=== PATIENT | female | born 1950 | race Caucasian/White ===

== ENCOUNTER 2021-03-12 06:38 | Inpatient (IN) ==
[2021-03-12] MEDS ORDERED: ALBUTEROL 2.5 MG/3 ML NEB RESP TX STA (07:06)
[2021-03-12] MEDS ORDERED: ONDANSETRON 4 MG/2 ML VIAL IV STA (07:07)
[2021-03-12 07:54] LABS: Basophils # 0.1 10*3/uL (0.0-0.2); Basophils % 0.6 % (0.0-0.8); Eosinophils # 0.2 10*3/uL (0.0-0.87); Eosinophils % 2.1 % (0.00-10.9); Hematocrit 24.8 VOL% (35.7-47.0); Hemoglobin 7.7 GM/DL (12.0-16.0); Immature Granulocytes % 0.4 %; Immature Granulocytes Absolute 0.03 #; Lymphocytes # 2.5 10*3/uL (1.4-4.0); Lymphocytes % 32.4 % (21.3-54.2); Mean Corpuscular Volume 71.9 FL (87-102); Mean Platelet Volume 8.8 FL (9.6-12.0); Monocytes % 14.9 % (1.7-12.7); Neutrophils % 49.6 % (38.7-73.9); Platelet Count 300 T/CUMM (130-400); Red Blood Count 3.45 MC/CUMM (3.8-5.5); Red Cell Distribution Width 17.4 % (9.3-17.3); White Blood Count 7.8 T/CUMM (4-12)
[2021-03-12 08:06] LABS: PT Patient Result 11.5 SECS (10.5-12.0); Partial Thromboplastin Time 25.9 SECS (23.9-33.8)
[2021-03-12] MEDS ORDERED: fentaNYL 100 MCG/2 ML VIAL IV STA ×2 (08:10→09:41)
[2021-03-12 08:14] LABS: Atypical Lymphocytes Few; Band Neutrophils 1 % (0-10); Eosinophils 2 % (0-10); Hypochromasia 2+; Lymphocytes 33 % (20-55); Microcytosis 1+; Ovalocytes Slight; Segmented Neutrophils 52 % (50-85); Target Cells Slight; Total Cells Counted 100
[2021-03-12 08:15] LABS: Platelet Estimate Normal
[2021-03-12 08:17] LABS: Albumin 3.7 G/DL (3.4-5.0); Bilirubin,Total 0.5 MG/DL (0.20-1.00); Calcium 8.1 MG/DL (8.5-10.1); Osmolality,Calculated 232.5 MOS/KG (273-304); Potassium 3.5 MMOL/L (3.5-5.1); Total Protein 7.3 G/DL (6.4-8.2)
[2021-03-12 10:01] LABS: % Iron Saturation 4.4 % (18-50); Ferritin 12.3 ng/ml (8-252)
[2021-03-12] MEDS ORDERED: PROMETHAZINE 25 MG TABLET PO PRN (10:55)
[2021-03-12] MEDS ORDERED: guaiFENesin/DM ER 600-30 MG TABLET PO PRN (10:55)
[2021-03-12] MEDS ORDERED: NICOTINE 21 MG/24 HR PATCH TRANSDERM PRN (10:55)
[2021-03-12] MEDS ORDERED: DOCUSATE SODIUM 100 MG CAPSULE PO PRN (10:55)
[2021-03-12] MEDS ORDERED: GLUCAGON 1 MG VIAL IM PRN (10:55)
[2021-03-12] MEDS ORDERED: DEXTROSE 50% 25 GM/50 ML VIAL IV PRN (10:55)
[2021-03-12] MEDS ORDERED: ONDANSETRON 4 MG/2 ML VIAL IV PRN (10:55)
[2021-03-12] MEDS ORDERED: MORPHINE 2 MG/1 ML SYRINGE IV PRN (10:55)
[2021-03-12] MEDS ORDERED: ALUMINUM/MAGNES/SIMETH MAX STR 30 ML UDCUP PO PRN (10:55)
[2021-03-12] MEDS ORDERED: ALBUTEROL/IPRATROPIUM 3 ML NEB RESP TX PRN (11:30)
[2021-03-12 11:41] LABS: Folate 14.25 NG/ML (5.38-24.0)
[2021-03-12] MEDS ORDERED: SODIUM CHLORIDE 0.9% 1,000 ML IV PRN (12:59)
[2021-03-12] MEDS: ALBUTEROL/IPRATROPIUM 3 ML NEB RESP TX SCH ×2 (13:24→20:00)
[2021-03-12] MEDS ORDERED: NITROGLYCERIN SL 0.4 MG TABLET SL PRN (13:25)
[2021-03-12] MEDS: cefTRIAXone 1,000 MG in SODIUM CHLORIDE 0.9% 100 ML IV SCH (14:10)
[2021-03-12] MEDS: AZITHROMYCIN 250 MG TABLET PO SCH (14:11)
[2021-03-12] MEDS: methylPREDNISolone SOD SUC 40 MG/1 ML VIAL IV SCH (14:11)
[2021-03-12 16:25] LABS: Bacteria,Urine Occasional /HPF (Few); Bilirubin,Urine Negative (Negative); Blood, Urine Negative (Negative); Glucose,Urine (UA) Negative (Negative); Ketones,Urine Negative (Negative); Mucus,Urine Occasional /LPF (Occasional); Nitrite,Urine Negative (Negative); Protein,Urine Negative; RBC,Urine 2 /HPF (0-4); Squamous Epithelial Cell,Urine Occasional /HPF (0-10); Urine Appearance CLEAR (Clear); Urine Color Colorless (Yellow); Urine Specific Gravity 1.002 (1.001-1.035); Urine Urobilinogen < 2.0 EU/DL (0.2-1.0)
[2021-03-13] MEDS: ALBUTEROL/IPRATROPIUM 3 ML NEB RESP TX SCH ×4 (00:54→18:24)
[2021-03-13] MEDS: methylPREDNISolone SOD SUC 40 MG/1 ML VIAL IV SCH ×2 (01:46→16:25)
[2021-03-13 04:06] LABS: Basophils % 0.2 % (0.0-0.8); Hematocrit 30.8 VOL% (35.7-47.0); Immature Granulocytes % 0.9 %; Immature Granulocytes Absolute 0.05 #; Lymphocytes # 0.8 10*3/uL (1.4-4.0); Lymphocytes % 14.6 % (21.3-54.2); Mean Corpuscular HGB Conc 31.8 GM/DL (32-36); Mean Corpuscular Volume 77.6 FL (87-102); Mean Platelet Volume 9.2 FL (9.6-12.0); Monocytes % 6.9 % (1.7-12.7); Neutrophils % 77.4 % (38.7-73.9); Platelet Count 283 T/CUMM (130-400); Red Blood Count 3.97 MC/CUMM (3.8-5.5); Red Cell Distribution Width 19.6 % (9.3-17.3); White Blood Count 5.6 T/CUMM (4-12)
[2021-03-13 04:14] LABS: Hemoglobin 9.8 GM/DL (12.0-16.0)
[2021-03-13 04:39] LABS: Risk Ratio 1.88; VLDL Cholesterol 11.2 MG/DL
[2021-03-13 04:55] LABS: Calcium 8.6 MG/DL (8.5-10.1); Osmolality,Calculated 249.6 MOS/KG (273-304); Potassium 4.2 MMOL/L (3.5-5.1); Thyroid Stimulating Hormone 1.21 uIU/ml (0.358-3.74)
[2021-03-13] MEDS: FUROSEMIDE 40 MG TABLET PO SCH (08:42)
[2021-03-13] MEDS: AZITHROMYCIN 250 MG TABLET PO SCH (08:42)
[2021-03-13] MEDS: amLODIPine 2.5 MG TABLET PO SCH (08:42)
[2021-03-13] MEDS: ATORVASTATIN 40 MG TABLET PO SCH (08:42)
[2021-03-13] MEDS: carvediloL 25 MG TABLET PO SCH (08:42)
[2021-03-13 12:10] LABS: Osmolality, Serum 241 mOsm/kg (275 - 295)
[2021-03-13 12:29] LABS: Osmolality, Urine 85 mOsm/kg (150 - 1150)
[2021-03-13] MEDS: ASPIRIN EC 81 MG TABLET PO SCH (16:22)
[2021-03-13] MEDS: cefTRIAXone 1,000 MG in SODIUM CHLORIDE 0.9% 100 ML IV SCH (16:24)
[2021-03-14] MEDS: ALBUTEROL/IPRATROPIUM 3 ML NEB RESP TX SCH ×4 (01:00→19:44)
[2021-03-14 08:06] LABS: Hematocrit 29.5 VOL% (35.7-47.0); Hemoglobin 9.4 GM/DL (12.0-16.0); Immature Granulocytes % 0.5 %; Immature Granulocytes Absolute 0.05 #; Lymphocytes # 1.7 10*3/uL (1.4-4.0); Mean Corpuscular HGB Conc 31.9 GM/DL (32-36); Mean Corpuscular Volume 77.4 FL (87-102); Neutrophils % 68.5 % (38.7-73.9); Platelet Count 299 T/CUMM (130-400); Red Blood Count 3.81 MC/CUMM (3.8-5.5); Red Cell Distribution Width 19.2 % (9.3-17.3); White Blood Count 9.7 T/CUMM (4-12)
[2021-03-14 08:20] LABS: Osmolality,Calculated 255.6 MOS/KG (273-304); Potassium 4.1 MMOL/L (3.5-5.1)
[2021-03-14] MEDS: AZITHROMYCIN 250 MG TABLET PO SCH (08:54)
[2021-03-14] MEDS: amLODIPine 2.5 MG TABLET PO SCH (08:54)
[2021-03-14] MEDS: ASPIRIN EC 81 MG TABLET PO SCH (08:54)
[2021-03-14] MEDS: ATORVASTATIN 40 MG TABLET PO SCH (08:55)
[2021-03-14] MEDS: FUROSEMIDE 40 MG TABLET PO SCH (08:55)
[2021-03-14] MEDS: carvediloL 25 MG TABLET PO SCH (08:56)
[2021-03-14] MEDS: cefTRIAXone 1,000 MG in SODIUM CHLORIDE 0.9% 100 ML IV SCH (15:39)
[2021-03-15 06:31] LABS: Basophils % 0.3 % (0.0-0.8); Eosinophils # 0.1 10*3/uL (0.0-0.87); Eosinophils % 0.6 % (0.00-10.9); Hematocrit 29.2 VOL% (35.7-47.0); Hemoglobin 9.5 GM/DL (12.0-16.0); Immature Granulocytes % 0.4 %; Immature Granulocytes Absolute 0.05 #; Lymphocytes % 26.7 % (21.3-54.2); Mean Corpuscular HGB Conc 32.5 GM/DL (32-36); Mean Corpuscular Volume 77.9 FL (87-102); Monocytes % 15.1 % (1.7-12.7); Neutrophils % 56.9 % (38.7-73.9); Platelet Count 281 T/CUMM (130-400); Red Blood Count 3.75 MC/CUMM (3.8-5.5); Red Cell Distribution Width 19.8 % (9.3-17.3); White Blood Count 11.3 T/CUMM (4-12)
[2021-03-15 06:49] LABS: Calcium 8.6 MG/DL (8.5-10.1); Osmolality,Calculated 258.1 MOS/KG (273-304)
[2021-03-15] MEDS: ALBUTEROL/IPRATROPIUM 3 ML NEB RESP TX SCH (07:25)
[2021-03-15] MEDS: ASPIRIN EC 81 MG TABLET PO SCH (08:35)
[2021-03-15] MEDS: ATORVASTATIN 40 MG TABLET PO SCH (08:36)
[2021-03-15] MEDS: AZITHROMYCIN 250 MG TABLET PO SCH (08:36)
[2021-03-15] MEDS: FUROSEMIDE 40 MG TABLET PO SCH (08:36)
[2021-03-15] MEDS: carvediloL 25 MG TABLET PO SCH (08:36)
[2021-03-15] MEDS: amLODIPine 2.5 MG TABLET PO SCH (08:36)
[2021-03-15] MEDS ORDERED: MAGNESIUM SULF RIDER 2 GM/50 ML PREMIX IV ONE (10:39)
[2021-03-15] MEDS ORDERED: FERROUS SULFATE 325 MG TABLET PO SCH (11:00)
[2021-03-15 11:39] VITALS: BP 106/53
== END 2021-03-15 10:09 | disposition home or self-care (01) | DRG 641 ==
LOC: EDBD → EDUNIT# → N.ED 06:38 → N.EDINP 10:54 → SUATTDRO 10:54 → N.4E 11:49
PROVIDERS: ADMIT Internal Medicine; ATTEND Internal Medicine

== ENCOUNTER 2021-05-21 10:12 | Inpatient (IN) ==
[2021-05-21] MEDS ORDERED: FUROSEMIDE 100 MG/10 ML VIAL IV STA (10:47)
[2021-05-21] MEDS ORDERED: ALBUTEROL/IPRATROPIUM 3 ML NEB RESP TX STA (10:47)
[2021-05-21 11:13] LABS: Basophils % 0.4 % (0.0-0.8); Eosinophils # 0.3 10*3/uL (0.0-0.87); Hematocrit 24.6 VOL% (35.7-47.0); Hemoglobin 7.8 GM/DL (12.0-16.0); Immature Granulocytes % 0.6 %; Immature Granulocytes Absolute 0.05 #; Lymphocytes # 1.7 10*3/uL (1.4-4.0); Lymphocytes % 20.4 % (21.3-54.2); Mean Corpuscular HGB Conc 31.7 GM/DL (32-36); Mean Corpuscular Volume 72.1 FL (87-102); Monocytes % 12.8 % (1.7-12.7); Neutrophils % 61.8 % (38.7-73.9); Platelet Count 328 T/CUMM (130-400); Red Blood Count 3.41 MC/CUMM (3.8-5.5); Red Cell Distribution Width 18.5 % (9.3-17.3); White Blood Count 8.2 T/CUMM (4-12)
[2021-05-21 11:45] LABS: Albumin 3.7 G/DL (3.4-5.0); Bilirubin,Total 0.6 MG/DL (0.20-1.00); Calcium 8.3 MG/DL (8.5-10.1); Osmolality,Calculated 237.3 MOS/KG (273-304); Potassium 3.8 MMOL/L (3.5-5.1); Total Protein 7.2 G/DL (6.4-8.2)
[2021-05-21 11:54] LABS: Urine Appearance Clear (Clear); Urine Color TELLOW (Yellow)
[2021-05-21 11:55] LABS: Bilirubin,Urine Negative (Negative); Blood, Urine Negative (Negative); Glucose,Urine (UA) Negative (Negative); Ketones,Urine 1+ mg/dL (Negative); Nitrite,Urine Negative (Negative); Protein,Urine Negative; Urine Specific Gravity 1.005 (1.001-1.035)
[2021-05-21 11:56] LABS: RBC,Urine 1 /HPF (0-4); Squamous Epithelial Cell,Urine 5 /HPF (0-10)
[2021-05-21 12:07] LABS: Eosinophils 2 % (0-10); Hypochromasia 2+; Lymphocytes 22 % (20-55); Ovalocytes Few; Segmented Neutrophils 71 % (50-85); Total Cells Counted 100
[2021-05-21 12:08] LABS: Anisocytosis 1+; Platelet Estimate Normal; Polychromasia Few; Target Cells 1+
[2021-05-21 12:09] LABS: Spherocytes Slight
[2021-05-21] MEDS ORDERED: MORPHINE 2 MG/1 ML SYRINGE IV STA (12:58)
[2021-05-21] MEDS ORDERED: ONDANSETRON 4 MG/2 ML VIAL IV STA (12:58)
[2021-05-21] MEDS ORDERED: MORPHINE 2 MG/1 ML SYRINGE ONE (13:01)
[2021-05-21] MEDS ORDERED: BISACODYL 5 MG TABLET PO PRN (14:04)
[2021-05-21] MEDS ORDERED: DEXTROSE 50% 25 GM/50 ML VIAL IV PRN ×2 (14:04→14:22)
[2021-05-21] MEDS ORDERED: guaiFENesin/DM ER 600-30 MG TABLET PO PRN (14:04)
[2021-05-21] MEDS ORDERED: GLUCAGON 1 MG VIAL IM PRN (14:04)
[2021-05-21] MEDS ORDERED: ACETAMINOPHEN 325 MG TABLET PO PRN (14:04)
[2021-05-21] MEDS ORDERED: ONDANSETRON 4 MG/2 ML VIAL IV PRN (14:04)
[2021-05-21] MEDS ORDERED: NITROGLYCERIN SL 0.4 MG TABLET SL PRN (14:26)
[2021-05-21] MEDS ORDERED: chlordiazePOXIDE 25 MG CAPSULE PO PRN (15:02)
[2021-05-21] MEDS: MULTIVITAMIN (BEROCCA) TABLET PO SCH (16:00)
[2021-05-21] MEDS: THIAMINE 100 MG TABLET PO SCH (16:15)
[2021-05-21] MEDS: cefTRIAXone 1,000 MG in SODIUM CHLORIDE 0.9% 100 ML IV SCH (16:24)
[2021-05-21] MEDS: FUROSEMIDE 40 MG/4 ML VIAL IV SCH (17:08)
[2021-05-21] MEDS: INSULIN LISPRO 100 UNIT/ML SUBCUT SCH ×2 (17:14→20:56)
[2021-05-21] MEDS: CLINDAMYCIN INJ 600 MG/50 ML PREMIX IV SCH ×2 (17:15→21:41)
[2021-05-21] MEDS: ALBUTEROL/IPRATROPIUM 3 ML NEB RESP TX SCH (19:45)
[2021-05-21 20:02] LABS: Calcium 8.2 MG/DL (8.5-10.1); Osmolality,Calculated 245.6 MOS/KG (273-304); Potassium 3.5 MMOL/L (3.5-5.1)
[2021-05-21] MEDS: FOLIC ACID 1 MG TABLET PO SCH ×2 (20:55→21:12)
[2021-05-21] MEDS: GABAPENTIN 100 MG CAPSULE PO SCH (21:40)
[2021-05-21 23:53] LABS: Calcium 7.9 MG/DL (8.5-10.1); Osmolality,Calculated 243.8 MOS/KG (273-304); Potassium 3.2 MMOL/L (3.5-5.1)
[2021-05-22] MEDS: ALBUTEROL/IPRATROPIUM 3 ML NEB RESP TX SCH ×4 (00:01→19:17)
[2021-05-22 02:31] LABS: Basophils % 0.4 % (0.0-0.8); Eosinophils # 0.5 10*3/uL (0.0-0.87); Hemoglobin 6.8 GM/DL (12.0-16.0); Immature Granulocytes % 0.4 %; Immature Granulocytes Absolute 0.03 #; Lymphocytes # 1.9 10*3/uL (1.4-4.0); Mean Corpuscular HGB Conc 30.9 GM/DL (32-36); Mean Corpuscular Volume 72.6 FL (87-102); Mean Platelet Volume 9.1 FL (9.6-12.0); Monocytes % 18.6 % (1.7-12.7); Neutrophils % 49.6 % (38.7-73.9); Platelet Count 272 T/CUMM (130-400); Red Blood Count 3.03 MC/CUMM (3.8-5.5); Red Cell Distribution Width 18.5 % (9.3-17.3); White Blood Count 7.7 T/CUMM (4-12)
[2021-05-22 02:34] LABS: Calcium 8.1 MG/DL (8.5-10.1); Osmolality,Calculated 243.8 MOS/KG (273-304); Potassium 3.3 MMOL/L (3.5-5.1)
[2021-05-22 02:37] LABS: Alanine Aminotransferase < 6 U/L (13-56); Albumin 3.3 G/DL (3.4-5.0); Alkaline Phosphatase 50 U/L (45-117); Aspartate Amino Transferase 17 U/L (0-37); Bilirubin,Total < 0.39 MG/DL (0.20-1.00); Blood Urea Nitrogen 9 MG/DL (7-18); Calcium 8.1 MG/DL (8.5-10.1); Carbon Dioxide 29 MMOL/L (21-32); Estimated Glom Filtration Rate 85 ML/MIN; Glucose 62 MG/DL (74-106); Osmolality,Calculated 243.8 MOS/KG (273-304); Potassium 3.3 MMOL/L (3.5-5.1); Sodium 123 MMOL/L (136-145); Total Protein 6.6 G/DL (6.4-8.2)
[2021-05-22 02:39] LABS: % Iron Saturation 2.6 % (18-50); Ferritin 11.6 ng/mL (8-252)
[2021-05-22] MEDS ORDERED: SODIUM CHLORIDE 0.9% 1,000 ML IV PRN (02:45)
[2021-05-22 03:03] LABS: Eosinophils 4 % (0-10); Lymphocytes 21 % (20-55); Platelet Estimate Normal; Segmented Neutrophils 59 % (50-85); Total Cells Counted 100
[2021-05-22 03:04] LABS: Hypochromasia 1+; Microcytosis 1+
[2021-05-22] MEDS: CLINDAMYCIN INJ 600 MG/50 ML PREMIX IV SCH ×3 (05:30→23:29)
[2021-05-22] MEDS: FUROSEMIDE 40 MG/4 ML VIAL IV SCH ×2 (07:01→17:34)
[2021-05-22] MEDS ORDERED: OLMESARTAN 20 MG TABLET PO SCH (09:00)
[2021-05-22] MEDS ORDERED: amLODIPine 2.5 MG TABLET PO SCH (09:00)
[2021-05-22] MEDS ORDERED: PRASUGREL 10 MG TABLET PO SCH (09:00)
[2021-05-22] MEDS ORDERED: carvediloL 25 MG TABLET PO SCH (09:00)
[2021-05-22] MEDS ORDERED: ENOXAPARIN 40 MG/0.4 ML SYRINGE SUBCUT SCH (09:00)
[2021-05-22 09:20] LABS: Calcium 8.1 MG/DL (8.5-10.1); Osmolality,Calculated 243.9 MOS/KG (273-304); Potassium 3.5 MMOL/L (3.5-5.1)
[2021-05-22] MEDS: INSULIN LISPRO 100 UNIT/ML SUBCUT SCH ×4 (09:34→21:01)
[2021-05-22] MEDS: MULTIVITAMIN (BEROCCA) TABLET PO SCH (09:35)
[2021-05-22] MEDS: ATORVASTATIN 40 MG TABLET PO SCH (09:35)
[2021-05-22] MEDS: GABAPENTIN 100 MG CAPSULE PO SCH ×2 (09:35→21:00)
[2021-05-22] MEDS: THIAMINE 100 MG TABLET PO SCH (09:36)
[2021-05-22 14:53] LABS: Osmolality,Calculated 244.9 MOS/KG (273-304); Potassium 3.6 MMOL/L (3.5-5.1)
[2021-05-22 16:09] LABS: Hematocrit 27.1 VOL% (35.7-47.0); Hemoglobin 8.4 GM/DL (12.0-16.0)
[2021-05-22] MEDS: cefTRIAXone 1,000 MG in SODIUM CHLORIDE 0.9% 100 ML IV SCH (16:41)
[2021-05-22] MEDS: FOLIC ACID 1 MG TABLET PO SCH (21:00)
[2021-05-23] MEDS: ALBUTEROL/IPRATROPIUM 3 ML NEB RESP TX SCH ×4 (01:20→19:05)
[2021-05-23 05:19] LABS: Basophils # 0.1 10*3/uL (0.0-0.2); Basophils % 0.6 % (0.0-0.8); Eosinophils # 0.2 10*3/uL (0.0-0.87); Eosinophils % 1.9 % (0.00-10.9); Hematocrit 24.6 VOL% (35.7-47.0); Hemoglobin 7.7 GM/DL (12.0-16.0); Immature Granulocytes % 0.4 %; Immature Granulocytes Absolute 0.05 #; Lymphocytes # 1.6 10*3/uL (1.4-4.0); Lymphocytes % 14.3 % (21.3-54.2); Mean Corpuscular HGB Conc 31.3 GM/DL (32-36); Mean Corpuscular Volume 75.7 FL (87-102); Mean Platelet Volume 9.2 FL (9.6-12.0); Monocytes % 19.4 % (1.7-12.7); Neutrophils % 63.4 % (38.7-73.9); Platelet Count 256 T/CUMM (130-400); Red Blood Count 3.25 MC/CUMM (3.8-5.5); Red Cell Distribution Width 19.2 % (9.3-17.3); White Blood Count 11.3 T/CUMM (4-12)
[2021-05-23 05:34] LABS: Osmolality,Calculated 251.8 MOS/KG (273-304); Potassium 4.1 MMOL/L (3.5-5.1)
[2021-05-23 05:49] LABS: Band Neutrophils 2 % (0-10); Eosinophils 2 % (0-10); Hypochromasia 2+; Lymphocytes 13 % (20-55); Microcytosis 2+; Myelocytes 1 %; Segmented Neutrophils 69 % (50-85); Total Cells Counted 100
[2021-05-23 05:50] LABS: Elliptocytes Few; Platelet Estimate Normal
[2021-05-23] MEDS: CLINDAMYCIN INJ 600 MG/50 ML PREMIX IV SCH ×2 (06:06→18:52)
[2021-05-23] MEDS ORDERED: SODIUM CHLORIDE 0.9% 1,000 ML IV PRN ×2 (07:38→10:47)
[2021-05-23] MEDS ORDERED: FUROSEMIDE 20 MG/2 ML VIAL IV SCH (08:00)
[2021-05-23] MEDS: INSULIN LISPRO 100 UNIT/ML SUBCUT SCH ×4 (09:39→20:03)
[2021-05-23] MEDS: GABAPENTIN 100 MG CAPSULE PO SCH ×2 (09:42→20:18)
[2021-05-23] MEDS: THIAMINE 100 MG TABLET PO SCH (09:42)
[2021-05-23] MEDS: ATORVASTATIN 40 MG TABLET PO SCH (09:42)
[2021-05-23] MEDS: MULTIVITAMIN (BEROCCA) TABLET PO SCH (09:42)
[2021-05-23] MEDS: FERROUS SULFATE 325 MG TABLET PO SCH ×3 (09:47→20:18)
[2021-05-23] MEDS ORDERED: SODIUM CHLORIDE 0.9% 250 ML IV ONE (10:02)
[2021-05-23] MEDS: SODIUM CHLORIDE 0.9% 1,000 ML IV SCH ×2 (17:28→21:00)
[2021-05-23] MEDS: cefTRIAXone 1,000 MG in SODIUM CHLORIDE 0.9% 100 ML IV SCH (17:31)
[2021-05-23] MEDS: FOLIC ACID 1 MG TABLET PO SCH (20:18)
[2021-05-23 20:34] LABS: Osmolality, Urine 374 mOsm/kg (150 - 1150)
[2021-05-23 22:31] LABS: Osmolality, Serum 214 mOsm/kg (275 - 295)
[2021-05-24] MEDS: ALBUTEROL/IPRATROPIUM 3 ML NEB RESP TX SCH ×4 (00:29→20:55)
[2021-05-24] MEDS: CLINDAMYCIN INJ 600 MG/50 ML PREMIX IV SCH ×3 (02:41→18:11)
[2021-05-24 05:31] LABS: Basophils # 0.1 10*3/uL (0.0-0.2); Basophils % 0.8 % (0.0-0.8); Eosinophils # 0.3 10*3/uL (0.0-0.87); Eosinophils % 3.5 % (0.00-10.9); Hematocrit 28.3 VOL% (35.7-47.0); Hemoglobin 8.7 GM/DL (12.0-16.0); Immature Granulocytes % 0.4 %; Immature Granulocytes Absolute 0.04 #; Lymphocytes # 2.1 10*3/uL (1.4-4.0); Lymphocytes % 22.1 % (21.3-54.2); Mean Corpuscular HGB Conc 30.7 GM/DL (32-36); Mean Corpuscular Volume 78.6 FL (87-102); Mean Platelet Volume 9.1 FL (9.6-12.0); Monocytes % 20.5 % (1.7-12.7); Neutrophils % 52.7 % (38.7-73.9); Platelet Count 247 T/CUMM (130-400); Red Cell Distribution Width 19.6 % (9.3-17.3); White Blood Count 9.6 T/CUMM (4-12)
[2021-05-24 05:58] LABS: Calcium 7.9 MG/DL (8.5-10.1); Osmolality,Calculated 254.5 MOS/KG (273-304); Potassium 4.5 MMOL/L (3.5-5.1)
[2021-05-24] MEDS: SODIUM CHLORIDE 0.9% 1,000 ML IV SCH ×3 (06:26→19:29)
[2021-05-24 06:34] LABS: Anisocytosis 1+; Band Neutrophils 1 % (0-10); Eosinophils 1 % (0-10); Hypochromasia 1+; Lymphocytes 26 % (20-55); Platelet Estimate Normal; Segmented Neutrophils 53 % (50-85); Target Cells Few; Total Cells Counted 100
[2021-05-24 06:35] LABS: Burr Cells Few; Macrocytosis 1+
[2021-05-24] MEDS: INSULIN LISPRO 100 UNIT/ML SUBCUT SCH ×4 (08:25→20:44)
[2021-05-24] MEDS: MULTIVITAMIN (BEROCCA) TABLET PO SCH (09:21)
[2021-05-24] MEDS: ATORVASTATIN 40 MG TABLET PO SCH (09:22)
[2021-05-24] MEDS: GABAPENTIN 100 MG CAPSULE PO SCH ×2 (09:22→20:45)
[2021-05-24] MEDS: FERROUS SULFATE 325 MG TABLET PO SCH ×3 (09:22→20:45)
[2021-05-24] MEDS: THIAMINE 100 MG TABLET PO SCH (09:22)
[2021-05-24] MEDS: cefTRIAXone 1,000 MG in SODIUM CHLORIDE 0.9% 100 ML IV SCH (17:19)
[2021-05-24] MEDS: FOLIC ACID 1 MG TABLET PO SCH (20:45)
[2021-05-25] MEDS: ALBUTEROL/IPRATROPIUM 3 ML NEB RESP TX SCH ×4 (01:10→20:06)
[2021-05-25] MEDS: CLINDAMYCIN INJ 600 MG/50 ML PREMIX IV SCH ×3 (02:55→17:45)
[2021-05-25] MEDS: SODIUM CHLORIDE 0.9% 1,000 ML IV SCH ×3 (03:43→18:49)
[2021-05-25 06:03] LABS: Basophils # 0.1 10*3/uL (0.0-0.2); Basophils % 1.4 % (0.0-0.8); Eosinophils # 0.4 10*3/uL (0.0-0.87); Eosinophils % 4.4 % (0.00-10.9); Hematocrit 27.4 VOL% (35.7-47.0); Hemoglobin 8.6 GM/DL (12.0-16.0); Immature Granulocytes % 0.5 %; Immature Granulocytes Absolute 0.04 #; Lymphocytes # 1.8 10*3/uL (1.4-4.0); Lymphocytes % 20.8 % (21.3-54.2); Mean Corpuscular HGB Conc 31.4 GM/DL (32-36); Mean Platelet Volume 9.6 FL (9.6-12.0); Monocytes % 20.1 % (1.7-12.7); Neutrophils % 52.8 % (38.7-73.9); Platelet Count 259 T/CUMM (130-400); Red Blood Count 3.47 MC/CUMM (3.8-5.5); Red Cell Distribution Width 19.9 % (9.3-17.3); White Blood Count 8.9 T/CUMM (4-12)
[2021-05-25 06:20] LABS: Calcium 8.1 MG/DL (8.5-10.1); Osmolality,Calculated 261.1 MOS/KG (273-304); Potassium 4.3 MMOL/L (3.5-5.1)
[2021-05-25 07:15] LABS: Band Neutrophils 2 % (0-10); Eosinophils 2 % (0-10); Lymphocytes 20 % (20-55); Platelet Estimate Normal; Segmented Neutrophils 54 % (50-85); Total Cells Counted 100
[2021-05-25 07:16] LABS: Anisocytosis 1+; Ovalocytes Few; Tear Drop Cells Few
[2021-05-25 07:17] LABS: Basophilic Stippling Slight; Burr Cells Few; Macrocytosis Slight; Target Cells Few
[2021-05-25] MEDS: ATORVASTATIN 40 MG TABLET PO SCH (09:34)
[2021-05-25] MEDS: FERROUS SULFATE 325 MG TABLET PO SCH ×3 (09:34→21:54)
[2021-05-25] MEDS: MULTIVITAMIN (BEROCCA) TABLET PO SCH (09:34)
[2021-05-25] MEDS: ASPIRIN EC 81 MG TABLET PO SCH (09:34)
[2021-05-25] MEDS: THIAMINE 100 MG TABLET PO SCH (09:35)
[2021-05-25] MEDS: GABAPENTIN 100 MG CAPSULE PO SCH ×2 (09:35→21:54)
[2021-05-25] MEDS: INSULIN LISPRO 100 UNIT/ML SUBCUT SCH ×4 (09:50→21:20)
[2021-05-25] MEDS ORDERED: NEBIVOLOL 5 MG TABLET PO ONE (12:19)
[2021-05-25] MEDS: cefTRIAXone 1,000 MG in SODIUM CHLORIDE 0.9% 100 ML IV SCH (16:51)
[2021-05-25] MEDS: FOLIC ACID 1 MG TABLET PO SCH (21:54)
[2021-05-26] MEDS ORDERED: FUROSEMIDE 40 MG/4 ML VIAL IV ONE (00:46)
[2021-05-26] MEDS: CLINDAMYCIN INJ 600 MG/50 ML PREMIX IV SCH ×3 (01:40→17:38)
[2021-05-26] MEDS: ALBUTEROL/IPRATROPIUM 3 ML NEB RESP TX SCH ×4 (01:48→19:20)
[2021-05-26] MEDS: ALBUTEROL/IPRATROPIUM 3 ML NEB RESP TX PRN (04:14)
[2021-05-26 04:25] LABS: ABG Base Excess 3.9 MMOL/L (-2.5-2.5); ABG HCO3 27.8 MMOL/L (20-26); ABG PCO2 66.4 MM HG (35-48); ABG PH 7.291 (7.35-7.45); ABG PO2 66.2 MM HG (80-95); ABG TCO2 29.9 MMOL/L (23-27)
[2021-05-26 05:04] LABS: Basophils # 0.1 10*3/uL (0.0-0.2); Eosinophils # 0.2 10*3/uL (0.0-0.87); Eosinophils % 2.1 % (0.00-10.9); Hematocrit 30.4 VOL% (35.7-47.0); Immature Granulocytes % 0.6 %; Immature Granulocytes Absolute 0.05 #; Lymphocytes # 1.7 10*3/uL (1.4-4.0); Lymphocytes % 19.5 % (21.3-54.2); Mean Corpuscular HGB Conc 29.6 GM/DL (32-36); Mean Corpuscular Volume 82.6 FL (87-102); Mean Platelet Volume 10.2 FL (9.6-12.0); Monocytes % 21.8 % (1.7-12.7); Platelet Count 227 T/CUMM (130-400); Red Blood Count 3.68 MC/CUMM (3.8-5.5); Red Cell Distribution Width 20.3 % (9.3-17.3); White Blood Count 8.9 T/CUMM (4-12)
[2021-05-26 05:11] LABS: Allen Test Positive; Pt O2 Delivery Device CPAP
[2021-05-26 05:14] LABS: ABG Base Excess 4.4 MMOL/L (-2.5-2.5); ABG HCO3 28.3 MMOL/L (20-26); ABG Oxygen Saturation 97.7 % (95-100); ABG PCO2 67.6 MM HG (35-48); ABG TCO2 30.4 MMOL/L (23-27)
[2021-05-26 06:36] LABS: Calcium 8.7 MG/DL (8.5-10.1); Osmolality,Calculated 259.1 MOS/KG (273-304); Potassium 4.8 MMOL/L (3.5-5.1)
[2021-05-26 07:05] LABS: Anisocytosis 1+; Band Neutrophils 1 % (0-10); Burr Cells Few; Eosinophils 2 % (0-10); Lymphocytes 24 % (20-55); Macrocytosis Slight; Ovalocytes Few; Platelet Estimate Normal; Segmented Neutrophils 52 % (50-85); Total Cells Counted 100
[2021-05-26 07:06] LABS: Hypochromasia Slight
[2021-05-26] MEDS: INSULIN LISPRO 100 UNIT/ML SUBCUT SCH ×4 (07:53→20:23)
[2021-05-26 07:56] LABS: INR 1.1; PT Patient Result 12.1 SECS (10.5-12.0)
[2021-05-26] MEDS: NEBIVOLOL 5 MG TABLET PO SCH (09:35)
[2021-05-26] MEDS: THIAMINE 100 MG TABLET PO SCH (09:35)
[2021-05-26] MEDS: ATORVASTATIN 40 MG TABLET PO SCH (09:35)
[2021-05-26] MEDS: FERROUS SULFATE 325 MG TABLET PO SCH ×3 (09:35→22:00)
[2021-05-26] MEDS: MULTIVITAMIN (BEROCCA) TABLET PO SCH (09:35)
[2021-05-26] MEDS: GABAPENTIN 100 MG CAPSULE PO SCH ×2 (09:36→22:00)
[2021-05-26] MEDS: FUROSEMIDE 40 MG/4 ML VIAL IV SCH (09:36)
[2021-05-26] MEDS: ASPIRIN EC 81 MG TABLET PO SCH (09:36)
[2021-05-26] MEDS ORDERED: LACTULOSE 20 GM/30 ML UDCUP PO PRN (09:51)
[2021-05-26 10:29] LABS: ABG Base Excess 6.9 MMOL/L (-2.5-2.5); ABG HCO3 33.7 MMOL/L (20-26); ABG Oxygen Saturation 96.7 % (95-100); ABG PCO2 62.4 MM HG (35-48); ABG PO2 88.1 MM HG (80-95); ABG TCO2 35.6 MMOL/L (23-27)
[2021-05-26 12:19] LABS: Lymphocytes,Pleural Fluid 92 %; Monocytes,Pleural Fluid 3 %; Neutrophils,Pleural Fluid 5 %
[2021-05-26 12:20] LABS: RBC,Pleural Fluid 245 T/CUMM
[2021-05-26 12:23] LABS: Total Protein,Body Fluid 2.9 G/DL
[2021-05-26] MEDS: POLYETHYLENE GLYCOL POWDER 17 GM PACK PO SCH (12:23)
[2021-05-26] MEDS: LACTULOSE 20 GM/30 ML UDCUP PO SCH ×2 (13:49→22:00)
[2021-05-26] MEDS: cefTRIAXone 1,000 MG in SODIUM CHLORIDE 0.9% 100 ML IV SCH (17:00)
[2021-05-26] MEDS: FOLIC ACID 1 MG TABLET PO SCH (22:00)
[2021-05-26] MEDS ORDERED: diphenhydrAMINE 50 MG/1 ML VIAL IV PRN (23:59)
[2021-05-27] MEDS: ALBUTEROL/IPRATROPIUM 3 ML NEB RESP TX SCH ×5 (00:12→19:44)
[2021-05-27] MEDS: CLINDAMYCIN INJ 600 MG/50 ML PREMIX IV SCH ×3 (02:15→17:44)
[2021-05-27 06:36] LABS: Basophils # 0.1 10*3/uL (0.0-0.2); Basophils % 1.3 % (0.0-0.8); Eosinophils # 0.4 10*3/uL (0.0-0.87); Eosinophils % 4.6 % (0.00-10.9); Hematocrit 26.9 VOL% (35.7-47.0); Hemoglobin 8.1 GM/DL (12.0-16.0); Immature Granulocytes % 0.4 %; Immature Granulocytes Absolute 0.03 #; Lymphocytes # 1.3 10*3/uL (1.4-4.0); Lymphocytes % 17.8 % (21.3-54.2); Mean Corpuscular HGB Conc 30.1 GM/DL (32-36); Mean Corpuscular Volume 80.1 FL (87-102); Mean Platelet Volume 9.4 FL (9.6-12.0); Monocytes % 16.7 % (1.7-12.7); Neutrophils % 59.2 % (38.7-73.9); Platelet Count 280 T/CUMM (130-400); Red Blood Count 3.36 MC/CUMM (3.8-5.5); Red Cell Distribution Width 20.9 % (9.3-17.3); White Blood Count 7.5 T/CUMM (4-12)
[2021-05-27 06:58] LABS: Eosinophils 2 % (0-10); Hypochromasia 1+; Lymphocytes 16 % (20-55); Microcytosis 1+; Platelet Estimate Adequate; Segmented Neutrophils 70 % (50-85); Total Cells Counted 100
[2021-05-27 07:05] LABS: Calcium 8.1 MG/DL (8.5-10.1); Osmolality,Calculated 261.7 MOS/KG (273-304); Potassium 3.9 MMOL/L (3.5-5.1)
[2021-05-27] MEDS ORDERED: MAGNESIUM SULF RIDER 4 GM/100 ML PREMIX IV PRN (07:38)
[2021-05-27] MEDS ORDERED: MAGNESIUM SULF RIDER 2 GM/50 ML PREMIX IV PRN (07:38)
[2021-05-27] MEDS: INSULIN LISPRO 100 UNIT/ML SUBCUT SCH ×4 (08:31→20:44)
[2021-05-27] MEDS: MULTIVITAMIN (BEROCCA) TABLET PO SCH (09:33)
[2021-05-27] MEDS: THIAMINE 100 MG TABLET PO SCH (09:33)
[2021-05-27] MEDS: FERROUS SULFATE 325 MG TABLET PO SCH ×3 (09:33→20:43)
[2021-05-27] MEDS: NEBIVOLOL 5 MG TABLET PO SCH (09:34)
[2021-05-27] MEDS: ASPIRIN EC 81 MG TABLET PO SCH (09:34)
[2021-05-27] MEDS: LACTULOSE 20 GM/30 ML UDCUP PO SCH ×2 (09:34→20:43)
[2021-05-27] MEDS: ATORVASTATIN 40 MG TABLET PO SCH (09:34)
[2021-05-27] MEDS: GABAPENTIN 100 MG CAPSULE PO SCH ×2 (09:34→20:44)
[2021-05-27] MEDS: POLYETHYLENE GLYCOL POWDER 17 GM PACK PO SCH (09:34)
[2021-05-27] MEDS: FUROSEMIDE 40 MG/4 ML VIAL IV SCH (10:00)
[2021-05-27] MEDS: cefTRIAXone 1,000 MG in SODIUM CHLORIDE 0.9% 100 ML IV SCH (16:20)
[2021-05-27] MEDS: FOLIC ACID 1 MG TABLET PO SCH (20:44)
[2021-05-28] MEDS: ALBUTEROL/IPRATROPIUM 3 ML NEB RESP TX SCH ×4 (00:02→19:59)
[2021-05-28] MEDS: CLINDAMYCIN INJ 600 MG/50 ML PREMIX IV SCH ×3 (01:00→18:15)
[2021-05-28] MEDS: ALBUTEROL/IPRATROPIUM 3 ML NEB RESP TX PRN (03:13)
[2021-05-28 06:14] LABS: Basophils # 0.1 10*3/uL (0.0-0.2); Basophils % 1.2 % (0.0-0.8); Eosinophils # 0.6 10*3/uL (0.0-0.87); Eosinophils % 6.4 % (0.00-10.9); Hemoglobin 8.2 GM/DL (12.0-16.0); Immature Granulocytes % 0.2 %; Immature Granulocytes Absolute 0.02 #; Lymphocytes # 1.7 10*3/uL (1.4-4.0); Lymphocytes % 19.4 % (21.3-54.2); Mean Corpuscular HGB Conc 30.4 GM/DL (32-36); Mean Corpuscular Volume 80.6 FL (87-102); Mean Platelet Volume 9.7 FL (9.6-12.0); Monocytes % 15.1 % (1.7-12.7); Neutrophils % 57.7 % (38.7-73.9); Platelet Count 295 T/CUMM (130-400); Red Blood Count 3.35 MC/CUMM (3.8-5.5); Red Cell Distribution Width 21.4 % (9.3-17.3); White Blood Count 8.9 T/CUMM (4-12)
[2021-05-28 06:36] LABS: Eosinophils 5 % (0-10); Lymphocytes 19 % (20-55); Segmented Neutrophils 61 % (50-85); Total Cells Counted 100
[2021-05-28 06:37] LABS: Hypochromasia 1+; Microcytosis 1+; Platelet Estimate Adequate
[2021-05-28 07:33] LABS: Osmolality,Calculated 255.1 MOS/KG (273-304)
[2021-05-28] MEDS: MULTIVITAMIN (BEROCCA) TABLET PO SCH (10:09)
[2021-05-28] MEDS: ATORVASTATIN 40 MG TABLET PO SCH (10:09)
[2021-05-28] MEDS: NEBIVOLOL 5 MG TABLET PO SCH (10:09)
[2021-05-28] MEDS: ASPIRIN EC 81 MG TABLET PO SCH (10:09)
[2021-05-28] MEDS: GABAPENTIN 100 MG CAPSULE PO SCH ×2 (10:10→20:40)
[2021-05-28] MEDS: FUROSEMIDE 40 MG/4 ML VIAL IV SCH (10:10)
[2021-05-28] MEDS: THIAMINE 100 MG TABLET PO SCH (10:10)
[2021-05-28] MEDS: LACTULOSE 20 GM/30 ML UDCUP PO SCH ×2 (10:10→21:30)
[2021-05-28] MEDS: POLYETHYLENE GLYCOL POWDER 17 GM PACK PO SCH (10:10)
[2021-05-28] MEDS: FERROUS SULFATE 325 MG TABLET PO SCH ×3 (10:10→20:40)
[2021-05-28] MEDS: PRASUGREL 10 MG TABLET PO SCH (10:40)
[2021-05-28] MEDS: INSULIN LISPRO 100 UNIT/ML SUBCUT SCH ×4 (11:13→20:41)
[2021-05-28] MEDS ORDERED: chlordiazePOXIDE 10 MG CAPSULE PO SCH (15:00)
[2021-05-28] MEDS: cefTRIAXone 1,000 MG in SODIUM CHLORIDE 0.9% 100 ML IV SCH (17:02)
[2021-05-28] MEDS: FOLIC ACID 1 MG TABLET PO SCH (20:40)
[2021-05-29] MEDS: ALBUTEROL/IPRATROPIUM 3 ML NEB RESP TX SCH ×4 (00:22→20:14)
[2021-05-29] MEDS: CLINDAMYCIN INJ 600 MG/50 ML PREMIX IV SCH (01:26)
[2021-05-29 05:54] LABS: Basophils # 0.1 10*3/uL (0.0-0.2); Basophils % 1.3 % (0.0-0.8); Eosinophils # 0.7 10*3/uL (0.0-0.87); Eosinophils % 6.7 % (0.00-10.9); Hematocrit 27.2 VOL% (35.7-47.0); Hemoglobin 8.4 GM/DL (12.0-16.0); Immature Granulocytes % 0.5 %; Immature Granulocytes Absolute 0.05 #; Lymphocytes # 1.6 10*3/uL (1.4-4.0); Lymphocytes % 16.4 % (21.3-54.2); Mean Corpuscular HGB Conc 30.9 GM/DL (32-36); Mean Corpuscular Volume 80.2 FL (87-102); Mean Platelet Volume 9.6 FL (9.6-12.0); Monocytes % 14.1 % (1.7-12.7); Platelet Count 304 T/CUMM (130-400); Red Blood Count 3.39 MC/CUMM (3.8-5.5); Red Cell Distribution Width 21.9 % (9.3-17.3); White Blood Count 9.9 T/CUMM (4-12)
[2021-05-29 06:17] LABS: Calcium 7.8 MG/DL (8.5-10.1); Osmolality,Calculated 259.8 MOS/KG (273-304); Potassium 4.1 MMOL/L (3.5-5.1)
[2021-05-29] MEDS: INSULIN LISPRO 100 UNIT/ML SUBCUT SCH ×4 (10:21→20:54)
[2021-05-29] MEDS: LACTATED RINGERS 1,000 ML IV SCH (12:45)
[2021-05-29] MEDS ORDERED: propofoL 200 MG/20 ML VIAL IV ONE (14:14)
[2021-05-29] MEDS ORDERED: MIDAZOLAM 2 MG/2 ML VIAL ONE (14:14)
[2021-05-29] MEDS: MULTIVITAMIN (BEROCCA) TABLET PO SCH (16:05)
[2021-05-29] MEDS: GABAPENTIN 100 MG CAPSULE PO SCH ×2 (16:05→20:54)
[2021-05-29] MEDS: THIAMINE 100 MG TABLET PO SCH (16:05)
[2021-05-29] MEDS: ATORVASTATIN 40 MG TABLET PO SCH (16:05)
[2021-05-29] MEDS: ASPIRIN EC 81 MG TABLET PO SCH (16:05)
[2021-05-29] MEDS: NEBIVOLOL 5 MG TABLET PO SCH (16:05)
[2021-05-29] MEDS: POLYETHYLENE GLYCOL POWDER 17 GM PACK PO SCH (16:06)
[2021-05-29] MEDS: FERROUS SULFATE 325 MG TABLET PO SCH ×3 (16:06→20:53)
[2021-05-29] MEDS: LACTULOSE 20 GM/30 ML UDCUP PO SCH ×2 (16:06→20:53)
[2021-05-29] MEDS: FUROSEMIDE 40 MG/4 ML VIAL IV SCH (16:06)
[2021-05-29] MEDS: PRASUGREL 10 MG TABLET PO SCH (16:10)
[2021-05-29] MEDS: ALBUTEROL/IPRATROPIUM 3 ML NEB RESP TX PRN (17:20)
[2021-05-29] MEDS ORDERED: SODIUM CHLORIDE 0.9% 1,000 ML IV PRN ×2 (20:16→21:47)
[2021-05-29] MEDS ORDERED: PANTOPRAZOLE 40 MG VIAL IV ONE (20:24)
[2021-05-29] MEDS: FOLIC ACID 1 MG TABLET PO SCH (20:54)
[2021-05-29 21:43] LABS: Hematocrit 19.3 VOL% (35.7-47.0)
[2021-05-29 21:45] LABS: Hemoglobin 5.9 GM/DL (12.0-16.0)
[2021-05-29] MEDS: PANTOPRAZOLE INJ 200 MG in SODIUM CHLORIDE 0.9% 250 ML IV SCH (23:10)
[2021-05-30] MEDS: ALBUTEROL/IPRATROPIUM 3 ML NEB RESP TX SCH ×4 (02:22→19:05)
[2021-05-30 03:37] LABS: Basophils # 0.1 10*3/uL (0.0-0.2); Basophils % 0.8 % (0.0-0.8); Eosinophils # 0.3 10*3/uL (0.0-0.87); Eosinophils % 1.8 % (0.00-10.9); Hematocrit 24.8 VOL% (35.7-47.0); Immature Granulocytes % 0.6 %; Immature Granulocytes Absolute 0.09 #; Lymphocytes # 3.2 10*3/uL (1.4-4.0); Mean Corpuscular HGB Conc 31.5 GM/DL (32-36); Mean Corpuscular Volume 84.9 FL (87-102); Mean Platelet Volume 10.1 FL (9.6-12.0); Monocytes % 9.4 % (1.7-12.7); Neutrophils % 65.4 % (38.7-73.9); Platelet Count 258 T/CUMM (130-400); Red Blood Count 2.92 MC/CUMM (3.8-5.5); Red Cell Distribution Width 18.5 % (9.3-17.3); White Blood Count 14.4 T/CUMM (4-12)
[2021-05-30 03:42] LABS: Hemoglobin 7.8 GM/DL (12.0-16.0)
[2021-05-30 04:00] LABS: Calcium 7.4 MG/DL (8.5-10.1); Osmolality,Calculated 269.7 MOS/KG (273-304); Potassium 4.8 MMOL/L (3.5-5.1)
[2021-05-30] MEDS: LACTATED RINGERS 1,000 ML IV SCH (08:00)
[2021-05-30] MEDS: INSULIN LISPRO 100 UNIT/ML SUBCUT SCH ×4 (08:37→21:12)
[2021-05-30] MEDS ORDERED: SODIUM CHLORIDE 0.9% 500 ML IV ONE (09:11)
[2021-05-30] MEDS: ATORVASTATIN 40 MG TABLET PO SCH (09:24)
[2021-05-30] MEDS: MULTIVITAMIN (BEROCCA) TABLET PO SCH (09:24)
[2021-05-30] MEDS: NEBIVOLOL 5 MG TABLET PO SCH (09:24)
[2021-05-30] MEDS: FUROSEMIDE 40 MG/4 ML VIAL IV SCH (09:24)
[2021-05-30] MEDS: LACTULOSE 20 GM/30 ML UDCUP PO SCH ×2 (09:24→21:12)
[2021-05-30] MEDS: ASPIRIN EC 81 MG TABLET PO SCH (09:24)
[2021-05-30] MEDS: FERROUS SULFATE 325 MG TABLET PO SCH ×3 (09:24→20:16)
[2021-05-30] MEDS: GABAPENTIN 100 MG CAPSULE PO SCH ×2 (09:25→20:17)
[2021-05-30] MEDS: THIAMINE 100 MG TABLET PO SCH (09:25)
[2021-05-30] MEDS: POLYETHYLENE GLYCOL POWDER 17 GM PACK PO SCH (09:25)
[2021-05-30 10:24] LABS: Hematocrit 23.6 VOL% (35.7-47.0); Hemoglobin 7.5 GM/DL (12.0-16.0)
[2021-05-30] MEDS: LEVOFLOXACIN INJ 750 MG/150 ML PREMIX IV SCH (10:30)
[2021-05-30] MEDS ORDERED: PHENYLEPHRINE DRIP 40 MG/250 ML PREMIX IV PRN (12:46)
[2021-05-30] MEDS ORDERED: FUROSEMIDE 20 MG/2 ML VIAL IV ONE (12:48)
[2021-05-30] MEDS ORDERED: MIDAZOLAM 2 MG/2 ML VIAL ONE (14:11)
[2021-05-30] MEDS ORDERED: SUGAMMADEX 200 MG/2 ML VIAL IV ONE (14:23)
[2021-05-30] MEDS ORDERED: SUCCINYLCHOLINE 200 MG/10 ML VIAL ONE (14:45)
[2021-05-30] MEDS ORDERED: ETOMIDATE 40 MG/20 ML VIAL IV ONE (14:45)
[2021-05-30] MEDS: FOLIC ACID 1 MG TABLET PO SCH (20:16)
[2021-05-30 21:33] LABS: Hematocrit 27.1 VOL% (35.7-47.0); Hemoglobin 8.9 GM/DL (12.0-16.0)
[2021-05-30] MEDS: PANTOPRAZOLE INJ 200 MG in SODIUM CHLORIDE 0.9% 250 ML IV SCH (21:43)
[2021-05-31] MEDS: ALBUTEROL/IPRATROPIUM 3 ML NEB RESP TX SCH ×4 (00:35→19:00)
[2021-05-31 04:41] LABS: Basophils # 0.2 10*3/uL (0.0-0.2); Eosinophils # 0.9 10*3/uL (0.0-0.87); Eosinophils % 4.5 % (0.00-10.9); Hematocrit 23.9 VOL% (35.7-47.0); Hemoglobin 7.9 GM/DL (12.0-16.0); Immature Granulocytes % 0.5 %; Immature Granulocytes Absolute 0.09 #; Lymphocytes # 4.1 10*3/uL (1.4-4.0); Lymphocytes % 21.4 % (21.3-54.2); Mean Corpuscular HGB Conc 33.1 GM/DL (32-36); Mean Corpuscular Volume 89.2 FL (87-102); Mean Platelet Volume 10.3 FL (9.6-12.0); Monocytes % 17.3 % (1.7-12.7); Neutrophils % 55.3 % (38.7-73.9); Platelet Count 214 T/CUMM (130-400); Red Blood Count 2.68 MC/CUMM (3.8-5.5); Red Cell Distribution Width 18.5 % (9.3-17.3); White Blood Count 19.1 T/CUMM (4-12)
[2021-05-31 04:57] LABS: Albumin 2.3 G/DL (3.4-5.0); Bilirubin,Total 0.8 MG/DL (0.20-1.00); Calcium 6.8 MG/DL (8.5-10.1); Osmolality,Calculated 276.1 MOS/KG (273-304); Potassium 4.8 MMOL/L (3.5-5.1); Total Protein 4.7 G/DL (6.4-8.2)
[2021-05-31 05:23] LABS: Eosinophils 5 % (0-10); Hypochromasia 1+; Lymphocytes 16 % (20-55); Segmented Neutrophils 65 % (50-85); Total Cells Counted 100
[2021-05-31 05:24] LABS: Microcytosis 1+
[2021-05-31] MEDS: INSULIN LISPRO 100 UNIT/ML SUBCUT SCH ×4 (07:45→22:55)
[2021-05-31] MEDS: LACTATED RINGERS 1,000 ML IV SCH (07:45)
[2021-05-31] MEDS: FERROUS SULFATE 325 MG TABLET PO SCH ×3 (08:24→22:55)
[2021-05-31] MEDS: NEBIVOLOL 5 MG TABLET PO SCH (08:24)
[2021-05-31] MEDS: LACTULOSE 20 GM/30 ML UDCUP PO SCH ×2 (08:24→22:55)
[2021-05-31] MEDS: MULTIVITAMIN (BEROCCA) TABLET PO SCH (08:24)
[2021-05-31] MEDS: FUROSEMIDE 40 MG/4 ML VIAL IV SCH (08:24)
[2021-05-31] MEDS: POLYETHYLENE GLYCOL POWDER 17 GM PACK PO SCH (08:25)
[2021-05-31] MEDS: GABAPENTIN 100 MG CAPSULE PO SCH ×2 (08:25→22:55)
[2021-05-31] MEDS: LEVOFLOXACIN INJ 750 MG/150 ML PREMIX IV SCH (08:25)
[2021-05-31] MEDS: THIAMINE 100 MG TABLET PO SCH (08:25)
[2021-05-31] MEDS: ATORVASTATIN 40 MG TABLET PO SCH (08:25)
[2021-05-31] MEDS: ASPIRIN EC 81 MG TABLET PO SCH (08:27)
[2021-05-31] MEDS ORDERED: MAGNESIUM SULF RIDER 2 GM/50 ML PREMIX IV ONE (08:35)
[2021-05-31] MEDS ORDERED: CALCIUM GLUCONATE 1,000 MG in SODIUM CHLORIDE 0.9% 100 ML IV ONE (08:35)
[2021-05-31 14:06] LABS: M. Tuberculosis PCR Result Negative (Negative); M. Tuberculosis PCR Source Pleural Fluid
[2021-05-31] MEDS: FOLIC ACID 1 MG TABLET PO SCH (22:59)
[2021-06-01] MEDS: ALBUTEROL/IPRATROPIUM 3 ML NEB RESP TX SCH ×4 (02:30→20:52)
[2021-06-01 05:11] LABS: Basophils # 0.1 10*3/uL (0.0-0.2); Basophils % 0.6 % (0.0-0.8); Eosinophils # 0.8 10*3/uL (0.0-0.87); Eosinophils % 7.9 % (0.00-10.9); Hematocrit 18.4 VOL% (35.7-47.0); Immature Granulocytes % 0.6 %; Immature Granulocytes Absolute 0.06 #; Lymphocytes # 2.2 10*3/uL (1.4-4.0); Lymphocytes % 21.3 % (21.3-54.2); Mean Corpuscular HGB Conc 32.1 GM/DL (32-36); Mean Corpuscular Volume 93.4 FL (87-102); Mean Platelet Volume 9.9 FL (9.6-12.0); Monocytes % 14.4 % (1.7-12.7); Neutrophils % 55.2 % (38.7-73.9); Platelet Count 194 T/CUMM (130-400); Red Cell Distribution Width 19.1 % (9.3-17.3)
[2021-06-01 05:31] LABS: White Blood Count 10.2 T/CUMM (4-12)
[2021-06-01 05:32] LABS: Red Blood Count 1.97 MC/CUMM (3.8-5.5)
[2021-06-01 05:33] LABS: Hemoglobin 5.9 GM/DL (12.0-16.0)
[2021-06-01] MEDS ORDERED: SODIUM CHLORIDE 0.9% 1,000 ML IV PRN (05:36)
[2021-06-01 05:40] LABS: Calcium 7.6 MG/DL (8.5-10.1); Osmolality,Calculated 266.4 MOS/KG (273-304); Potassium 3.7 MMOL/L (3.5-5.1)
[2021-06-01] MEDS: INSULIN LISPRO 100 UNIT/ML SUBCUT SCH ×4 (07:53→22:41)
[2021-06-01] MEDS: FUROSEMIDE 40 MG/4 ML VIAL IV SCH (08:43)
[2021-06-01] MEDS: PANTOPRAZOLE 40 MG VIAL IV SCH ×2 (08:43→21:06)
[2021-06-01] MEDS: THIAMINE 100 MG TABLET PO SCH (08:45)
[2021-06-01] MEDS: ASPIRIN EC 81 MG TABLET PO SCH (08:45)
[2021-06-01] MEDS: FERROUS SULFATE 325 MG TABLET PO SCH ×3 (08:45→21:03)
[2021-06-01] MEDS: ATORVASTATIN 40 MG TABLET PO SCH (08:45)
[2021-06-01] MEDS: MULTIVITAMIN (BEROCCA) TABLET PO SCH (08:45)
[2021-06-01] MEDS: GABAPENTIN 100 MG CAPSULE PO SCH ×2 (08:45→21:03)
[2021-06-01] MEDS: NEBIVOLOL 5 MG TABLET PO SCH (08:45)
[2021-06-01] MEDS: POLYETHYLENE GLYCOL POWDER 17 GM PACK PO SCH (08:47)
[2021-06-01] MEDS: LACTULOSE 20 GM/30 ML UDCUP PO SCH ×2 (08:47→22:41)
[2021-06-01] MEDS ORDERED: MAGNESIUM CITRATE 300 ML BOTTLE PO ONE (11:45)
[2021-06-01] MEDS: LEVOFLOXACIN INJ 750 MG/150 ML PREMIX IV SCH (13:02)
[2021-06-01 17:07] LABS: Hemoglobin 9.6 GM/DL (12.0-16.0)
[2021-06-01] MEDS: FOLIC ACID 1 MG TABLET PO SCH (21:03)
[2021-06-02] MEDS: ALBUTEROL/IPRATROPIUM 3 ML NEB RESP TX SCH ×4 (02:18→19:09)
[2021-06-02] MEDS: INSULIN LISPRO 100 UNIT/ML SUBCUT SCH ×4 (07:43→21:35)
[2021-06-02 07:52] LABS: Basophils # 0.1 10*3/uL (0.0-0.2); Basophils % 1.1 % (0.0-0.8); Eosinophils # 0.7 10*3/uL (0.0-0.87); Eosinophils % 8.4 % (0.00-10.9); Hemoglobin 9.7 GM/DL (12.0-16.0); Immature Granulocytes % 0.4 %; Immature Granulocytes Absolute 0.03 #; Lymphocytes # 1.7 10*3/uL (1.4-4.0); Lymphocytes % 20.7 % (21.3-54.2); Mean Corpuscular HGB Conc 33.4 GM/DL (32-36); Mean Corpuscular Volume 90.9 FL (87-102); Mean Platelet Volume 9.8 FL (9.6-12.0); Monocytes % 13.9 % (1.7-12.7); Neutrophils % 55.5 % (38.7-73.9); Platelet Count 235 T/CUMM (130-400); Red Blood Count 3.19 MC/CUMM (3.8-5.5); Red Cell Distribution Width 17.2 % (9.3-17.3); White Blood Count 8.4 T/CUMM (4-12)
[2021-06-02] MEDS: LACTULOSE 20 GM/30 ML UDCUP PO SCH ×2 (08:02→21:35)
[2021-06-02] MEDS: MULTIVITAMIN (BEROCCA) TABLET PO SCH (08:02)
[2021-06-02] MEDS: NEBIVOLOL 5 MG TABLET PO SCH (08:02)
[2021-06-02] MEDS: ASPIRIN EC 81 MG TABLET PO SCH (08:02)
[2021-06-02] MEDS: ATORVASTATIN 40 MG TABLET PO SCH (08:03)
[2021-06-02] MEDS: GABAPENTIN 100 MG CAPSULE PO SCH ×2 (08:03→21:36)
[2021-06-02] MEDS: THIAMINE 100 MG TABLET PO SCH (08:03)
[2021-06-02] MEDS: FERROUS SULFATE 325 MG TABLET PO SCH ×3 (08:03→21:35)
[2021-06-02] MEDS: POLYETHYLENE GLYCOL POWDER 17 GM PACK PO SCH (08:03)
[2021-06-02] MEDS: FUROSEMIDE 40 MG TABLET PO SCH (08:03)
[2021-06-02 08:09] LABS: Calcium 7.9 MG/DL (8.5-10.1); Osmolality,Calculated 261.5 MOS/KG (273-304); Potassium 3.3 MMOL/L (3.5-5.1)
[2021-06-02] MEDS: PANTOPRAZOLE 40 MG VIAL IV SCH ×2 (10:15→21:36)
[2021-06-02] MEDS: LEVOFLOXACIN INJ 750 MG/150 ML PREMIX IV SCH (10:16)
[2021-06-02] MEDS: FOLIC ACID 1 MG TABLET PO SCH (21:35)
[2021-06-03] MEDS: ALBUTEROL/IPRATROPIUM 3 ML NEB RESP TX SCH ×3 (00:41→13:27)
[2021-06-03] MEDS: INSULIN LISPRO 100 UNIT/ML SUBCUT SCH ×2 (08:38→12:00)
[2021-06-03 08:50] LABS: Basophils # 0.1 10*3/uL (0.0-0.2); Eosinophils # 0.7 10*3/uL (0.0-0.87); Eosinophils % 8.2 % (0.00-10.9); Hematocrit 31.6 VOL% (35.7-47.0); Hemoglobin 10.2 GM/DL (12.0-16.0); Immature Granulocytes % 0.4 %; Immature Granulocytes Absolute 0.03 #; Lymphocytes # 1.8 10*3/uL (1.4-4.0); Mean Corpuscular HGB Conc 32.3 GM/DL (32-36); Mean Corpuscular Volume 92.9 FL (87-102); Mean Platelet Volume 9.8 FL (9.6-12.0); Monocytes % 13.6 % (1.7-12.7); Neutrophils % 54.8 % (38.7-73.9); Platelet Count 304 T/CUMM (130-400); Red Cell Distribution Width 17.7 % (9.3-17.3); White Blood Count 8.3 T/CUMM (4-12)
[2021-06-03 09:07] LABS: Calcium 8.3 MG/DL (8.5-10.1); Osmolality,Calculated 263.4 MOS/KG (273-304); Potassium 3.7 MMOL/L (3.5-5.1)
[2021-06-03] MEDS: NEBIVOLOL 5 MG TABLET PO SCH (11:58)
[2021-06-03] MEDS: FERROUS SULFATE 325 MG TABLET PO SCH (11:58)
[2021-06-03] MEDS: LACTULOSE 20 GM/30 ML UDCUP PO SCH (11:58)
[2021-06-03] MEDS: ASPIRIN EC 81 MG TABLET PO SCH (11:58)
[2021-06-03] MEDS: MULTIVITAMIN (BEROCCA) TABLET PO SCH (11:58)
[2021-06-03] MEDS: GABAPENTIN 100 MG CAPSULE PO SCH (11:59)
[2021-06-03] MEDS: ATORVASTATIN 40 MG TABLET PO SCH (11:59)
[2021-06-03] MEDS: POLYETHYLENE GLYCOL POWDER 17 GM PACK PO SCH (11:59)
[2021-06-03] MEDS: LEVOFLOXACIN INJ 750 MG/150 ML PREMIX IV SCH (11:59)
[2021-06-03] MEDS: FUROSEMIDE 40 MG TABLET PO SCH (11:59)
[2021-06-03] MEDS: PANTOPRAZOLE 40 MG VIAL IV SCH (11:59)
[2021-06-03] MEDS: THIAMINE 100 MG TABLET PO SCH (12:00)
[2021-06-03 12:56] VITALS: BP 133/63
== END 2021-06-03 15:01 | disposition home or self-care (01) | DRG 291 ==
LOC: N.ED 10:12 → N.EDINP 14:04 → SUATTDRO 14:04 → N.TELES 17:04 → N.CC 05-30 00:07 → N.5E 05-31 18:31
PROVIDERS: ADMIT Internal Medicine; ATTEND Hospitalist

== ENCOUNTER 2021-08-07 18:43 | Observation (INO) ==
[2021-08-07] MEDS: DEXT 5% NACL 0.45% KCL 20 MEQ 20 MEQ/1,000 ML BAG IV SCH (20:46)
[2021-08-07 20:50] LABS: Basophils % 0.1 % (0.0-0.8); Eosinophils % 0.1 % (0.00-10.9); Hematocrit 32.3 VOL% (35.7-47.0); Hemoglobin 10.9 GM/DL (12.0-16.0); Immature Granulocytes Absolute 0.15 #; Lymphocytes # 1.2 10*3/uL (1.4-4.0); Mean Corpuscular HGB Conc 33.7 GM/DL (32-36); Mean Corpuscular Volume 80.5 FL (87-102); Mean Platelet Volume 9.7 FL (9.6-12.0); Monocytes % 12.9 % (1.7-12.7); Neutrophils % 77.9 % (38.7-73.9); Platelet Count 222 T/CUMM (130-400); Red Blood Count 4.01 MC/CUMM (3.8-5.5); Red Cell Distribution Width 14.6 % (9.3-17.3); White Blood Count 14.5 T/CUMM (4-12)
[2021-08-07 21:04] LABS: INR 1.1; PT Patient Result 11.9 SECS (10.5-12.0); Partial Thromboplastin Time 29.6 SECS (23.8-32.1)
[2021-08-07 21:15] LABS: Alanine Aminotransferase 16 U/L (13-56); Albumin 2.9 G/DL (3.4-5.0); Alkaline Phosphatase 90 U/L (45-117); Aspartate Amino Transferase 19 U/L (0-37); Blood Urea Nitrogen 27 MG/DL (7-18); Calcium 8.3 MG/DL (8.5-10.1); Carbon Dioxide 20 MMOL/L (21-32); Estimated Glom Filtration Rate 42 ML/MIN; Glucose 95 MG/DL (74-106); Osmolality,Calculated 249.9 MOS/KG (273-304); Potassium 3.1 MMOL/L (3.5-5.1); Sodium 122 MMOL/L (136-145); Total Protein 7.6 G/DL (6.4-8.2)
[2021-08-07 21:19] LABS: Bacteria,Urine Occasional /HPF (Few); Bilirubin,Urine Negative (Negative); Blood, Urine Moderate mg/dL (Negative); Glucose,Urine (UA) Negative (Negative); Ketones,Urine Negative (Negative); Mucus,Urine Occasional /LPF (Occasional); Nitrite,Urine Negative (Negative); Protein,Urine 30 MG/DL; RBC,Urine 11 /HPF (0-4); Squamous Epithelial Cell,Urine Occasional /HPF (0-10); Urine Appearance Slightly Hazy (Clear); Urine Color Yellow (Yellow); Urine Specific Gravity 1.005 (1.001-1.035); Urine Urobilinogen < 2.0 EU/DL (0.2-1.0)
[2021-08-07] MEDS ORDERED: LEVOFLOXACIN INJ 500 MG/100 ML PREMIX IV ONE (21:26)
[2021-08-07] MEDS ORDERED: SODIUM CHLORIDE 0.9% 1,000 ML IV STA ×2 (21:32→22:30)
[2021-08-07 21:42] LABS: Barbiturates Screen,Urine Negative (Negative); Benzodiazepines Screen,Urine Negative (Negative); Cannabinoid Screen,Urine Negative (Negative); Opiate Screen,Urine Negative (Negative); Phencyclidine Screen,Urine Negative (Negative)
[2021-08-08] MEDS ORDERED: diphenhydrAMINE CAP 25 MG CAPSULE PO PRN (00:37)
[2021-08-08] MEDS ORDERED: DEXTROSE 50% 25 GM/50 ML VIAL IV PRN (00:37)
[2021-08-08] MEDS ORDERED: MORPHINE 2 MG/1 ML SYRINGE IV PRN (00:37)
[2021-08-08] MEDS ORDERED: NICOTINE 21 MG/24 HR PATCH TRANSDERM PRN (00:37)
[2021-08-08] MEDS ORDERED: GLUCAGON 1 MG VIAL IM PRN ×2 (00:37)
[2021-08-08] MEDS ORDERED: ACETAMINOPHEN 325 MG TABLET PO PRN (00:37)
[2021-08-08] MEDS ORDERED: ZALEPLON 5 MG CAPSULE PO PRN (00:37)
[2021-08-08] MEDS ORDERED: hydrALAZINE 20 MG/1 ML VIAL IV PRN (00:37)
[2021-08-08] MEDS ORDERED: guaiFENesin/DM ER 600-30 MG TABLET PO PRN (00:37)
[2021-08-08] MEDS ORDERED: ONDANSETRON 4 MG/2 ML VIAL IV PRN (00:37)
[2021-08-08] MEDS ORDERED: DEXTROSE 50% 25 GM/50 ML SYRINGE IV PRN (00:37)
[2021-08-08] MEDS ORDERED: ALBUTEROL/IPRATROPIUM 3 ML NEB RESP TX PRN (00:40)
[2021-08-08] MEDS ORDERED: SODIUM CHLORIDE 0.9% 1,000 ML IV SCH (01:00)
[2021-08-08] MEDS: DEXT 5% NACL 0.45% KCL 20 MEQ 20 MEQ/1,000 ML BAG IV SCH ×2 (04:02→11:29)
[2021-08-08 07:21] LABS: Basophils % 0.1 % (0.0-0.8); Eosinophils % 0.2 % (0.00-10.9); Hematocrit 29.8 VOL% (35.7-47.0); Hemoglobin 9.9 GM/DL (12.0-16.0); Immature Granulocytes % 0.4 %; Immature Granulocytes Absolute 0.04 #; Lymphocytes % 10.6 % (21.3-54.2); Mean Corpuscular HGB Conc 33.2 GM/DL (32-36); Mean Corpuscular Volume 81.2 FL (87-102); Mean Platelet Volume 10.8 FL (9.6-12.0); Monocytes % 17.1 % (1.7-12.7); Neutrophils % 71.6 % (38.7-73.9); Platelet Count 213 T/CUMM (130-400); Red Blood Count 3.67 MC/CUMM (3.8-5.5); Red Cell Distribution Width 14.8 % (9.3-17.3); White Blood Count 9.8 T/CUMM (4-12)
[2021-08-08 07:36] LABS: Calcium 7.7 MG/DL (8.5-10.1); Potassium 3.1 MMOL/L (3.5-5.1)
[2021-08-08 07:37] LABS: Osmolality,Calculated 252.4 MOS/KG (273-304)
[2021-08-08 07:52] LABS: Hypochromasia 2+; Lymphocytes 9 % (20-55); Microcytosis Slight; Platelet Estimate Adequate; Segmented Neutrophils 79 % (50-85); Total Cells Counted 100
[2021-08-08] MEDS: PANTOPRAZOLE 40 MG TABLET PO SCH (08:20)
[2021-08-08] MEDS: HEPARIN 5,000 UNIT/1 ML VIAL SUBCUT SCH ×2 (08:20→21:59)
[2021-08-08] MEDS: INSULIN LISPRO 100 UNIT/ML SUBCUT SCH ×4 (08:26→21:59)
[2021-08-08] MEDS: LACTULOSE 20 GM/30 ML UDCUP PO SCH ×3 (12:57→21:59)
[2021-08-08] MEDS: PRASUGREL 10 MG TABLET PO SCH (13:11)
[2021-08-08] MEDS: SODIUM CHLORIDE 0.9% 1,000 ML IV SCH (13:11)
[2021-08-08] MEDS: ASPIRIN EC 81 MG TABLET PO SCH (13:11)
[2021-08-08] MEDS: FERROUS SULFATE 325 MG TABLET PO SCH (17:41)
[2021-08-08] MEDS ORDERED: LEVOFLOXACIN INJ 750 MG/150 ML PREMIX IV SCH (21:00)
[2021-08-08] MEDS ORDERED: ATORVASTATIN 40 MG TABLET PO SCH (21:00)
[2021-08-09] MEDS: SODIUM CHLORIDE 0.9% 1,000 ML IV SCH ×2 (04:39→11:59)
[2021-08-09 07:25] LABS: Basophils % 0.5 % (0.0-0.8); Eosinophils % 0.5 % (0.00-10.9); Hematocrit 29.7 VOL% (35.7-47.0); Hemoglobin 9.6 GM/DL (12.0-16.0); Immature Granulocytes % 0.6 %; Immature Granulocytes Absolute 0.05 #; Lymphocytes # 1.1 10*3/uL (1.4-4.0); Lymphocytes % 12.8 % (21.3-54.2); Mean Corpuscular HGB Conc 32.3 GM/DL (32-36); Mean Corpuscular Volume 82.3 FL (87-102); Mean Platelet Volume 10.1 FL (9.6-12.0); Monocytes % 21.3 % (1.7-12.7); Neutrophils % 64.3 % (38.7-73.9); Platelet Count 247 T/CUMM (130-400); Red Blood Count 3.61 MC/CUMM (3.8-5.5); Red Cell Distribution Width 14.8 % (9.3-17.3); White Blood Count 8.4 T/CUMM (4-12)
[2021-08-09 07:43] LABS: Calcium 8.6 MG/DL (8.5-10.1); Osmolality,Calculated 259.8 MOS/KG (273-304); Potassium 3.7 MMOL/L (3.5-5.1)
[2021-08-09] MEDS: DEXT 5% NACL 0.45% KCL 20 MEQ 20 MEQ/1,000 ML BAG IV SCH ×2 (07:45→12:00)
[2021-08-09] MEDS: INSULIN LISPRO 100 UNIT/ML SUBCUT SCH ×2 (07:45→11:59)
[2021-08-09 07:50] LABS: Hypochromasia 1+; Lymphocytes 8 % (20-55); Microcytosis 1+; Platelet Estimate Adequate; Segmented Neutrophils 76 % (50-85); Total Cells Counted 100
[2021-08-09] MEDS: PRASUGREL 10 MG TABLET PO SCH (09:25)
[2021-08-09] MEDS: PANTOPRAZOLE 40 MG TABLET PO SCH (09:25)
[2021-08-09] MEDS: FERROUS SULFATE 325 MG TABLET PO SCH (09:25)
[2021-08-09] MEDS: ASPIRIN EC 81 MG TABLET PO SCH (09:25)
[2021-08-09] MEDS: HEPARIN 5,000 UNIT/1 ML VIAL SUBCUT SCH (09:25)
[2021-08-09] MEDS: LACTULOSE 20 GM/30 ML UDCUP PO SCH (09:31)
[2021-08-09 11:45] VITALS: BP 95/44
== END 2021-08-09 12:36 | disposition home or self-care (01) ==
LOC: EDUNIT# → EDBD → N.ED 18:43 → N.EDINP 08-08 00:37 → INTOOBSV 08-08 00:37 → SUATTDRO 08-08 00:37 → N.TELEN 08-08 03:22
PROVIDERS: ADMIT Internal Medicine; ATTEND Phlebology